=== PATIENT | female | born 1995 | race Caucasian/White ===

== ENCOUNTER 2018-11-10 20:18 | Emergency (ER) | payer MEDICAID ==
[~2018-11-10] VITALS: Wt 101.0 kg
[2018-11-10] MEDS ORDERED: ALBUTEROL 0.083% (NEB) 2.5 MG/3 ML AMP NEB STA (21:18)
[2018-11-10] MEDS ORDERED: predniSONE 20 MG TAB PO STA (21:18)
[2018-11-10] MEDS ORDERED: IPRATROPIUM (NEB) 0.5 MG/2.5 ML AMP NEB STA (21:18)
--- NOTE | 2018-11-10 22:07 | ERD ---
ER Documentation Chief Complaint Chief Complaint sent by OB x clearance from on/off SOB & palpitations HPI 23-year-old female in her 23rd week of referred by OB with complaint of shortness of breath, tachycardia, dyspnea. Patient states that she is unable to breathe and fully because of the pain. Patient denies any chest pain, diaphoresis, history of asthma, leg swelling, leg redness, leg pain, history of clotting, hemoptysis, history of malignancy, recent surgery, cough, fevers. ROS All systems reviewed and are negative except as per history of present illness. Medications Home Meds Active Scripts Albuterol Sulfate* (Ventolin HFA*) 18 Gm Hfa.aer.ad, 2 PUFF INHALATION Q4H, #1 INHALER Prov:JAMIE CABRAL 11/11/18 Azithromycin* (Zithromax*) 250 Mg Tablet, 250 MG PO .ZPACK DIRECTED, #6 TAB TAKE 500 MG (2 TABS) THE FIRST DAY THEN 250 MG (1 TAB) DAYS 2-5 Prov:JAMIE CABRAL 11/11/18 Allergies Allergies: Coded Allergies: No Known Allergy (Unverified , 11/10/18) PMhx/Soc History of Surgery: Yes (GI tumor resected.) Anesthesia Reaction: No Hx Neurological Disorder: No Hx Respiratory Disorders: No Hx Cardiac Disorders: No Hx Miscellaneous Medical Probl: No Hx Alcohol Use: No Hx Substance Use: No Hx Tobacco Use: No Smoking Status: Never smoker FmHx Family History: No diabetes, No coronary disease, No other Physical Exam Vitals Vital Signs Date Temp Pulse Resp B/P (MAP) Pulse Ox O2 O2 Flow FiO2 Time Delivery Rate 11/11/18 97.9 122 22 109/78 98 Room Air 01:34 (88) 11/11/18 125 98 Room Air 00:52 11/10/18 98.6 146 18 123/79 94 Room Air 23:45 (94) 11/10/18 97.9 136 19 108/57 99 Room Air 23:24 (74) 11/10/18 105 20 96 21 22:31 11/10/18 92 20 92 21 21:38 11/10/18 98.2 95 20 124/65 100 20:21 (84) Physical Exam Const: No acute distress Head: Atraumatic Eyes: Normal Conjunctiva ENT: Normal External Ears, Nose and Mouth. Neck: Full range of motion. No meningismus. Resp: Wheezing heard in lung kent diffusely Cardio: Regular rate and rhythm, no murmurs Abd: Soft, non tender, non distended. Normal bowel sounds Skin: No petechiae or rashes Back: No midline or flank tenderness Ext: No cyanosis, or edema Neur: Awake and alert Psych: Normal Mood and Affect Result Diagram: 11/10/18 2332 11/10/18 2332 Results 24 hrs Laboratory Tests Test 11/10/18 23:32 White Blood Count 14.2 10^3/ul Red Blood Count 4.41 10^6/ul Hemoglobin 12.7 g/dl Hematocrit 38.7 % Mean Corpuscular Volume 87.8 fl Mean Corpuscular Hemoglobin 28.8 pg Mean Corpuscular Hemoglobin Concent 32.8 g/dl Red Cell Distribution Width 13.9 % Platelet Count 177 10^3/UL Mean Platelet Volume 10.5 fl Immature Granulocytes % 0.600 % Neutrophils % 68.2 % Lymphocytes % 22.2 % Monocytes % 6.6 % Eosinophils % 2.1 % Basophils % 0.3 % Nucleated Red Blood Cells % 0.0 /100WBC Immature Granulocytes # 0.080 10^3/ul Neutrophils # 9.7 10^3/ul Lymphocytes # 3.1 10^3/ul Monocytes # 0.9 10^3/ul Eosinophils # 0.3 10^3/ul Basophils # 0.0 10^3/ul Nucleated Red Blood Cells # 0.0 10^3/ul Sodium Level 141 mmol/L Potassium Level 2.8 mmol/L Chloride Level 107 mmol/L Carbon Dioxide Level 20 mmol/L Anion Gap 14 Blood Urea Nitrogen 5 mg/dl Creatinine 0.48 mg/dl Est Glomerular Filtrat Rate mL/min > 60 mL/min Glucose Level 118 mg/dl Calcium Level 8.7 mg/dl Total Bilirubin 0.5 mg/dl Direct Bilirubin 0.00 mg/dl Indirect Bilirubin 0.5 mg/dl Aspartate Amino Transf (AST/SGOT) 21 IU/L Alanine Aminotransferase (ALT/SGPT) 19 IU/L Alkaline Phosphatase 74 IU/L Total Protein 6.8 g/dl Albumin 3.6 g/dl Globulin 3.20 g/dl Albumin/Globulin Ratio 1.12 Current Medications Medications Dose Sig/Tobias Start Time Status Last (Trade) Ordered Route PRN Stop Time Admin Dose Reason Admin Albuterol 7.5 mg ONCE STAT 11/10/18 DC 11/10/18 (Proventil NEB 21:18 21:39 0.083% (Neb)) 11/10/18 21:20 Ipratropium 0.5 mg ONCE STAT 11/10/18 DC 11/10/18 [place] NEB 21:18 21:39 (Atrovent 11/10/18 21:20 0.02% (Neb)) Prednisone 60 mg ONCE STAT 11/10/18 DC (Prednisone) PO 21:18 11/10/18 21:28 Albuterol 15 mg ONCE STAT 11/10/18 DC (Proventil NEB 22:17 0.5% (Neb)) 11/10/18 22:22 1.25 mg ONCE STAT 11/10/18 DC Levalbuterol INH 22:22 (Xopenex 11/10/18 22:27 Neb) 7.5 mg ONCE ONCE 11/10/18 DC 11/10/18 Levalbuterol HHN 22:30 22:31 (Xopenex 11/10/18 22:31 Neb) Potassium 100 ml @ ONCE ONCE 11/11/18 11/11/18 Chloride 50 mls/hr IVPB 00:30 00:37 11/11/18 02:29 Potassium 40 meq ONCE STAT 11/11/18 DC 11/11/18 Chloride PO 00:22 00:32 (Klor-Con 20) 11/11/18 00:25 Sodium 1,000 ml @ Q1H STAT 11/11/18 DC 11/11/18 Chloride 1,000 mls/hr IV 00:26 00:29 11/11/18 01:25 Sodium 100 ml @ ud STK-MED 11/11/18 DC 11/11/18 Chloride ONCE .ROUTE 01: 01:28 11/11/18 01:27 Iodixanol 100 ml STK-MED 11/11/18 DC 11/11/18 (Visipaque ONCE .ROUTE : 01:28 Locm) 11/11/18 01:27 Procedures/MDM EKG: Rate/Rhythm: Normal Sinus Rhythm QRS, ST, T-waves: No changes consistent w/ acute ischemia Impression: No evidence of ischemia or arrhythmia MDM: I discussed the case with my supervising physician Dr. Noel, and given patient's complaint of dyspnea, history of tachycardia, status, as well as referral from primary to rule out PE, decision was made to do a bilateral leg ultrasound. Results of bilateral ultrasound within normal limits. In addition patient was given an EKG which is within normal limits. I also discussed the risks and benefits of the chest x-ray with the patient and patient agreed to do a chest x-ray. I do feel that this is appropriate given the patient's wheezing, dyspnea, history of tachycardia, and lack of history of asthma. Chest x-ray within normal limits. Breathing treatment was ordered for the patient using 7.5 mg albuterol and 0.5 of ipratropium. After 1 breathing treatment patient was still having wheezing. Respiratory therapist advised to do another breathing treatment but with 15 mg of albuterol but then once she saw that she was tacky at 110 bpm he said we should switch it to Xopenex. Albuterol 15mg was canceled and Xopenex ordered. After breathing treatment of Xopenex patient stated she felt much better however patient's O2 sat was still low at around 95% and she was tachycardic at about 140 bpm. . I discussed the case with my direct physician Dr. Noel and he stated that doing a CT angiogram would be most appropriate in this case and will be more beneficial for detecting PE and a VQ scan. I discussed the risk and benefits of doing a CT angiogram with the p atient and patient decided she would go through with a CT scan and signed a consent to do so. Also, patient's potassium was was low. I discussed proper treatment of this with my supervising patient Dr. Gipson and so he give 20 mEq IV and 40 mg oral. Patient was also given 1 L of IV fluids in the ER. Results of CT were negative for pulmonary embolism but showed possible pneumonia. Results of CT were discussed with Dr. Gipson and stated patient was fit for discharge with Rx for pneumonia. Patient was treated with azithromycin and given Rx for albuterol. At time of discharge patient was not any type of respiratory distress. At this time, patient is stable for discharge and outpatient management. I have instructed the patient to follow-up with his/her primary care physician in 1-2 days. I have discussed with the patient the possibility of needing to see a specialist for further workup and imaging studies if symptoms persist. I have instructed the patient to promptly return to the ER for any new or worsening symptoms including but not limited to increased pain, fever, nausea, vomiting, weakness or LOC. The patient and/or family expressed understanding of and agreement with this plan. All questions were answered. Home care instructions were provided. DISCLAIMER: Inadvertent spelling and grammatical errors are likely due to EHR/dictation software use and do not reflect on the overall quality of patient care. Also, please note that the electronic time recorded on this note does not necessarily reflect the actual time of the patient encounter. Departure Diagnosis: Primary Impression: Asthma Asthma severity: unspecified severity Asthma persistence: unspecified Asthma complication type: unspecified Qualified Codes: J45.909 - Unspecified asthma, uncomplicated Additional Impression: Pneumonia Pneumonia type: due to unspecified organism Laterality: unspecified laterality Lung location: unspecified part of lung Qualified Codes: J18.9 - Pneumonia, unspecified organism Condition: Joey JAMIE CABRAL Nov 10, 2018 22:07
[2018-11-10] MEDS ORDERED: ALBUTEROL 0.5% (NEB) 2.5 MG/0.5 ML AMP NEB STA (22:17)
[2018-11-10] MEDS ORDERED: LEVALBUTEROL (NEB) 1.25 MG/0.5 ML AMP INH STA (22:22)
[2018-11-10] MEDS ORDERED: LEVALBUTEROL (NEB) 1.25 MG/0.5 ML AMP HHN ONE (22:30)
[2018-11-11] MEDS ORDERED: POTASSIUM CHLORIDE (SR) 20 MEQ TAB PO STA (00:22)
[2018-11-11] MEDS ORDERED: SOD CHLORIDE 0.9% 1,000 ML IV STA (00:26)
[2018-11-11] MEDS ORDERED: POTASSIUM CHLORIDE 100 ML IVPB ONE (00:30)
[2018-11-11] MEDS ORDERED: IODIXANOL LOCM 100 ML BTL ONE (01:26)
[2018-11-11] MEDS ORDERED: SOD CHLORIDE 0.9% 100 ML ONE (01:26)
[2018-11-11] MEDS ORDERED: AZIT250T PO (01:38)
[2018-11-11] MEDS ORDERED: ALBU18HF INHALATION (01:38)
[2018-11-11] MEDS ORDERED: PREN-93 PO (02:33)
[2018-11-11 02:55] VITALS: BP 101/69; PULSE 105; RESP 20
== END 2018-11-11 03:05 | disposition home or self-care (01) ==
LOC: FTE 20:18 → E/R 11-11 03:05
DX: O99.512 Diseases of the respiratory system complicating pregnancy, second trimester (principal); J45.901 Unspecified asthma with (acute) exacerbation; J18.9 Pneumonia, unspecified organism; R06.02 Shortness of breath; Z3A.23 23 weeks gestation of pregnancy
CPT/HCPCS: 36415; 71045; 71275; 80053; 85025; 93005; 93970; 94644; 94645; 96374; J3480; J7030; Q9967; Z7502; Z7610; J7512

== ENCOUNTER 2019-02-28 13:56 | Outpatient (CLI) | payer OTHER ==
[~2019-02-28] VITALS: Ht 165.1 cm; Wt 116.5 kg
[~2019-02-28 13:56] MED LIST: ALBU18HF INHALATION; AZIT250T PO; PREN-93 PO
[2019-02-28 14:08] VITALS: BP 128/77; PULSE 96; RESP 18; Ht 165.1 cm; Wt 116.5 kg
== END 2019-02-28 16:54 | disposition home or self-care (01) ==
LOC: L-D 13:56 → OBT 13:56
PROVIDERS: ATTEND Obstetrics & Gynecology
DX: O26.893 Other specified pregnancy related conditions, third trimester (principal); Z3A.39 39 weeks gestation of pregnancy; R10.9 Unspecified abdominal pain
CPT/HCPCS: 76818; Z7500; G0463

== ENCOUNTER 2019-03-04 15:49 | Outpatient (CLI) | payer OTHER ==
[~2019-03-04] VITALS: Ht 165.1 cm; Wt 116.7 kg
[2019-03-04 16:41] VITALS: Ht 165.1 cm; Wt 116.7 kg
[2019-03-04 16:42] VITALS: BP 136/73; PULSE 86; RESP 18
== END 2019-03-04 17:37 | disposition home or self-care (01) ==
LOC: L-D 15:49 → OBT 15:49 → L-D 16:06 → OBT 17:37
PROVIDERS: ATTEND Obstetrics & Gynecology
DX: O62.9 Abnormality of forces of labor, unspecified (principal); Z3A.39 39 weeks gestation of pregnancy
CPT/HCPCS: G0463